=== PATIENT | male | born 1950 | race Caucasian/White ===

== ENCOUNTER → 2021-11-11 09:07 | Outpatient (CLI) | payer MEDICARE, SELFPAY ==
[2021-11-11 10:41] LABS: COVID19 -Nasal RAPID Negative (Negative)
== END ==
PROVIDERS: PCP Internal Medicine; Visit Provider Surgery
DX: Z20.822 Contact with and (suspected) exposure to COVID-19 (principal); Z01.812 Encounter for preprocedural laboratory examination
CPT/HCPCS: 87635; C9803

== ENCOUNTER 2021-11-14 06:55 | Day surgery (SDC) | payer MEDICARE, SELFPAY ==
--- NOTE | 2021-11-14 | PATH_ITS ---
[facility] Accession Number: [id number] . 01 Material submitted: . PART A: colon - RIGHT COLON BIOPSIES PART B: colon - TRANSVERSE COLON POLYP PART C: colon - LEFT COLON BIOPSIES PART D: rectum - RECTAL BIOPSIES . 01 Clinical history: . SDC DIARRHEA, UNSPECIFIED HEMORRHAGE OF ANUS AND RECTUM . 01 Diagnosis: A. Right Colon, Biopsies: Colonic mucosa with no diagnostic abnormality. Negative for active, chronic, and microscopic colitis. Negative for dysplasia and malignancy. . B. Transverse Colon, Polyp, Biopsy: Tubular adenoma. . C. Left Colon, Biopsies: Severely active colitis with ulceration and granulation tissue. Negative for CMV antigen by immunohistochemistry. Negative for granulomas, dysplasia, and malignancy. . D. Rectum, Biopsies: Severely active colitis with ulceration. Negative for CMV antigen by immunohistochemistry. Negative for granulomas, dysplasia, and malignancy. Please see comment. [facility] 11/18/2021 [facility]4 Local . 01 Comment: C-D. The left colon and rectal biopsies show severe neutrophilic activity and ulceration. No viral cytopathic effects or parasitic organisms are identified. There is no definite evidence of acute ischemia in the adjacent colonic mucosa. The differential diagnosis includes infection, medication-related mucosal injury, diverticular disease-associated colitis/trauma/prolapse, and idiopathic inflammatory bowel disease. Acute ischemia cannot be completely excluded. . 01 Electronically signed: . Katherine Fine MD, Pathologist NPI- [id number] . 01 Gross description: . Part A: RIGHT COLON BIOPSIES: Received in formalin are 2 fragment(s) of montilla, soft tissue measuring 0.1 x 0.1 x 0.1 cm in aggregate submitted entirely in 1 cassette(s) Part B: TRANSVERSE COLON POLYP: Received in formalin is 1 fragment(s) of montilla, soft tissue measuring 0.6 x 0.5 x 0.5 cm submitted entirely in 1 cassette(s) Part C: LEFT COLON BIOPSIES: Received in formalin are 2 fragment(s) of montilla, soft tissue measuring 0.1 x 0.1 x 0.1 cm to 0.2 x 0.2 x 0.2 cm submitted entirely in 1 cassette(s) Part D: RECTAL BIOPSIES: Received in formalin are 2 fragment(s) of montilla, soft tissue measuring 0.1 x 0.1 x 0.1 cm to 0.3 x 0.3 x 0.3 cm submitted entirely in 1 cassette(s) /[facility]STER 11/15/2021 1854 Local . 01 Microscopic: . C-D. CMV immunohistochemical stains were performed on blocks C and D in order to evaluate for CMV antigen, and are both negative. The control stain showed appropriate reactivity. . * This test was developed and its performance characteristics determined by [facility]. It has not been cleared or approved by the U.S. Food and Drug Administration. The FDA has determined that such clearance or approval is not necessary. This test is used for clinical purposes. It should not be regarded as investigational or for research. . 01 Pathologist provided ICD-10: R19.7, K62.5 . 01 CPT . 183922, 665549, 712969, [id number], [id number] Performed at: 01 [facility] [address] [place] [address], [place], [place] [id number] MD Ck Ro MD Phone: [phone]
--- NOTE | 2021-11-14 08:01 | PM.HP.1 ---
History of Present Illness History of Present Illness Date Patient Seen: 11/14/21 Time Patient Seen: 08:01 Chief complaint: SDC Narrative: I reviewed the note by Dr. De La Paz from October 19. No significant changes. Patient History Family & Social History Tobacco & Substance use: Smoking Status Never smoker Meds Home Medications and Allergies Home Medications Medication Instructions Recorded Confirmed Type atenolol 50 mg tablet 50 mg PO DAILY 11/10/21 11/10/21 History hydrochlorothiazide 25 mg tablet 25 mg PO DAILY 11/10/21 11/10/21 History nifedipine 30 mg tablet,extended 30 mg PO DAILY 11/10/21 11/10/21 History release Allergies Allergy/AdvReac Type Severity Reaction Status Date / Time PCN AdvReac Unknown Uncoded 11/10/21 10:53 Review of Systems Review of Systems ROS: Yes All systems reviewed with the patient and are negative except as otherwise documented Exam Const General: cooperative HENMT Head: normal to inspection Eyes General: appearance normal, both eyes and all related structures Neck Neck: normal visual inspection Chest Chest: normal inspection of the chest Resp Effort & Inspection: normal respiratory effort Cardio Rate: regular rate GI Inspection: normal to inspection Skin General: no rashes or lesions noted Neuro General: patient alert and patient awake Extrem General: normal to inspection and no pedal edema Psych Appearance: grossly normal Assessment & Plan Assessment & Plan narrative: 71-year-old male with bloody diarrhea. Colonoscopy is pursued. Time Spent With Patient Critical Care time: I spent a total of [] minutes of critical care time on this patient's care today; this time is exclusive of procedural time.
[2021-11-14] MEDS: SODIUM CHLORIDE 0.9% 1,000 ML 100 ML IV (08:03)
--- NOTE | 2021-11-14 08:03 | PM.PREOP ---
Pre-operative Note COVID-19 COVID-19 status: Negative Result date/Date tested (Pos, Neg/Pending): 11/11/21 Criteria for continued procedure: Possibility delay results in more complex future surgery or treatment Interval Note History & Physical reviewed/Exam performed by Physician: Yes Changes to H&P: No ASA Class (for procedural sedation): II
[2021-11-14 08:10] VITALS: BP 151/86; PULSE 74; RESP 16; TEMP 36.8; O2SAT 96; BMI 39.7
--- NOTE | 2021-11-14 08:59 | P.OP.COLON_ITS ---
Operative Date/Time/Diagnoses Date of procedure: 11/14/21 Time of procedure: 08:59 Pre-op diagnosis: Bloody diarrhea Post-op diagnosis: same Procedure & Clinicians Study performed: Colonoscopy with biopsies and hot snare polypectomy Same procedure as scheduled: Yes Indications: Bloody diarrhea Surgeon: Shaun Tariq Procedure Notes SCOAP/Timeout: Done Procedure in detail: After the risks and benefits were explained, written and verbal informed consent was obtained. The patient was brought into the procedure room and placed into the left lateral decubitus position. Please see nurse carton waxing machine operator notes for sedation details. Digital rectal examination was accomplished. The scope was introduced into the patient and advanced under direct visualization to the cecum as identified by the appendiceal orifice and ileocecal valve. The scope was slowly withdrawn to carefully examine the mucosa for any defects or lesions. Comprehensive imaging was accomplished throughout the rectum including the dentate line. The colon was decompressed, the scope was then removed from the patient who tolerated the procedure well. 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 There was sparing of the mucosa from the rectosigmoid junction to the distal rectum for perhaps 5-10 cm. And there was obvious inflammation once again throughout the sigmoid and then diminishing as we approached the splenic flexure. The colon appeared normal from the splenic flexure to the cecum. Terminal ileum was visually normal. There was a 7 mm polyp in the transverse removed with hot snare this was semi pedunculated. Random right colon biopsies were taken from the normal appearing mucosa. I took some biopsies from the inflamed sigmoid region and then a separate set from the rectal inflammation as well. Endoscopic diagnosis 1. Left-sided proctosigmoiditis 2. Colon polyp Post-procedure Plan for aftercare: 1. Await histopathology 2. Mesalamine enema therapy appears indicated here. 3. Follow up GI clinic. Disposition: PACU
[2021-11-14 09:01] VITALS: BP 100/70; PULSE 79; RESP 23; TEMP 37.1; O2SAT 91
[2021-11-14 09:06] VITALS: BP 111/57; PULSE 79; RESP 17; TEMP 37.2; O2SAT 94
[2021-11-14 09:11] VITALS: BP 120/75; PULSE 75; RESP 19; TEMP 37.1; O2SAT 92
[2021-11-14 09:13] VITALS: BP 122/67; PULSE 75; RESP 18; TEMP 37.1; O2SAT 94
== END 2021-11-14 09:30 | disposition home or self-care (01) ==
PROVIDERS: PCP Internal Medicine; Referring Provider Internal Medicine Gastroenterology; Visit Provider Internal Medicine Gastroenterology
PROC: 0DJD8ZZ Inspection of Lower Intestinal Tract, Via Natural or Artificial Opening Endoscopic (ICD-10-PCS; CPT 45378; principal; 2021-11-14 08:30)
DX: K92.1 Melena (principal); I10 Essential (primary) hypertension; E66.9 Obesity, unspecified; G47.30 Sleep apnea, unspecified; K63.89 Other specified diseases of intestine; D12.3 Benign neoplasm of transverse colon; K51.90 Ulcerative colitis, unspecified, without complications
CPT/HCPCS: 45385; 45380; J2704

== ENCOUNTER → 2021-12-26 12:57 | Outpatient (CLI) | payer MEDICARE, SELFPAY ==
[2021-12-26 13:55] LABS: COVID19 -Nasal RAPID POSITIVE (Negative)
== END ==
PROVIDERS: PCP Internal Medicine; Visit Provider Nurse Practitioner Family
DX: U07.1 COVID-19 (principal)
CPT/HCPCS: 87635